=== PATIENT | female | born 1985 | race Caucasian/White ===

== ENCOUNTER 2021-11-03 09:20 | Emergency (ER) | payer OTHER ==
[~2021-11-03] VITALS: Ht 152.4 cm; Wt 80.0 kg
[2021-11-03] MEDS ORDERED: PERMETHRIN5 % EX (09:46)
[2021-11-03 10:06] VITALS: BP 142/76
== END 2021-11-03 10:12 | disposition home or self-care (01) ==
LOC: ED 09:20
DX: B86 Scabies (principal)

== ENCOUNTER 2022-02-26 11:21 | Emergency (ER) | payer OTHER ==
[~2022-02-26] VITALS: Ht 152.4 cm; Wt 89.0 kg
[2022-02-26] VITALS (7 sets, daily range): BP systolic 123–158; BP diastolic 80–118
[~2022-02-26 11:21] MED LIST: PERMETHRIN5 % EX
[2022-02-26] MEDS ORDERED: PROPANOLOL PO (11:56)
[2022-02-26] MEDS ORDERED: MOTRIN800 MG PO (12:10)
[2022-02-26] MEDS ORDERED: OMNICEF300 M1 PO (12:10)
[2022-02-26] MEDS ORDERED: ULTRAM50 M1 PO (12:10)
== END 2022-02-26 13:15 | disposition home or self-care (01) ==
LOC: ED 11:21
DX: K02.9 Dental caries, unspecified (principal); S02.5XXA Fracture of tooth (traumatic), initial encounter for closed fracture; F17.200 Nicotine dependence, unspecified, uncomplicated; X58.XXXA Exposure to other specified factors, initial encounter